=== PATIENT | male | born 1965 | race Caucasian/White ===

== ENCOUNTER 2021-03-11 19:23 | Emergency (ER) | payer OTHER ==
[~2021-03-11] VITALS: Ht 180.3 cm; Wt 76.7 kg
[2021-03-11 19:45] VITALS: BP 140/82
--- NOTE | 2021-03-11 19:48 | NUR ---
TO LOBBY A/W BED AMBULATORY
--- NOTE | 2021-03-11 19:55 | NUR ---
SEEN AND EXAMINED BY MICK, WITH ORDERS AND CARRIED OUT,
[2021-03-11] MEDS ORDERED: KETOROLAC 60 MG/2 ML VIAL IM ONE (21:20)
--- NOTE | 2021-03-11 21:30 | NUR ---
MEDICATED PER [facility] ORDER, TOLERATED WELL.
--- NOTE | 2021-03-11 21:42 | NUR ---
RESULTS BACK NOTED BY ERMD AND FOR D/C
[2021-03-11] MEDS ORDERED: NAPR-54 PO (22:11)
[2021-03-11 22:20] VITALS: BP 128/79
== END 2021-03-11 22:20 | disposition home or self-care (01) ==
LOC: MED 19:23
DX: M75.122 Complete rotator cuff tear or rupture of left shoulder, not specified as traumatic (principal); S46.092A Other injury of muscle(s) and tendon(s) of the rotator cuff of left shoulder, initial encounter; W18.39XA Other fall on same level, initial encounter; Y93.89 Activity, other specified; Y92.89 Other specified places as the place of occurrence of the external cause; Y99.8 Other external cause status
CPT/HCPCS: 73030; 73080; 96372; 99284; J1885